=== PATIENT | female | born 1965 | race Caucasian/White ===

== ENCOUNTER → 2020-11-22 08:10 | Outpatient (BNVA) | payer OTHER, SELFPAY | PROVIDERS: PCP Family Medicine Adult Medicine; Visit Provider Family Medicine Adult Medicine | DX: E66.9 Obesity, unspecified (principal); R94.4 Abnormal results of kidney function studies; K21.9 Gastro-esophageal reflux disease without esophagitis; F42.9 Obsessive-compulsive disorder, unspecified; F41.8 Other specified anxiety disorders | CPT/HCPCS: 80053; 83036; 84443; 85025 ==

== ENCOUNTER 2024-08-26 13:27 | Observation (INO) | payer OTHER, SELFPAY ==
[2024-08-26] VITALS (7 sets, daily range): BP systolic 110–134; BP diastolic 76–83; PULSE 69–86; RESP 16–18; TEMP 36.6–37.2; O2SAT 97–100; BMI 31.7; BMI 32.5
--- NOTE | 2024-08-26 13:34 | CTR_ITS ---
PROCEDURE INFORMATION: Exam: CT Head Without Contrast Exam date and time: 08/26/2024 1:37 PM Age: 58 years old Clinical indication: Stroke-like symptoms; Left upper extremity and left lower extremity numbness/paresthesia; Additional info: Symptoms of acute stroke TECHNIQUE: Imaging protocol: Computed tomography of the head without contrast. Radiation optimization: All CT scans at this facility use at least one of these dose optimization techniques: automated exposure control; mA and/or kV adjustment per patient size (includes targeted exams where dose is matched to clinical indication); or iterative reconstruction. Other technique: STROKE PROTOCOL was implemented. COMPARISON: CT head wo con* [id number] 06/21/2018 6:28 PM RADIATION DOSE METRICS: Total DLP (mGy-cm): 1046.78 FINDINGS: Brain: No acute intracranial hemorrhage. No confluent lobar infarct. No mass effect. Cerebral ventricles: The ventricles and sulci are normal in size and shape for the patient's stated age. Paranasal sinuses: No fluid levels. Mastoid air cells: Visualized mastoid air cells are well aerated. Bones: No acute calvarial fracture. Soft tissues: Visualized soft tissues are unremarkable. CT/CT head thrombolytic [id number] IMPRESSION: No acute intracranial abnormality. If symptoms persist, consider further evaluation with MRI, if there are no contraindications to obtaining a MRI scan. ASSESSMENT: ASPECTS ([place] Stroke Program Early CT Score) is 10.
--- NOTE | 2024-08-26 13:34 | XRR_ITS ---
PROCEDURE INFORMATION: Exam: XR Chest Exam date and time: 08/26/2024 2:17 PM Age: 58 years old Clinical indication: Condition or disease; Other: CVA TECHNIQUE: Imaging protocol: Radiologic exam of the chest. Views: 1 view. COMPARISON: CR XR chest 1V [id number] 06/21/2018 6:22 PM FINDINGS: Lungs: No focal lung consolidation. Pleural spaces: No pleural effusion. No pneumothorax. Heart/Mediastinum: No cardiomegaly. Bones/joints: No acute bony abnormality. XR/XR chest 1V portable [id number] IMPRESSION: No focal lung consolidation.
--- NOTE | 2024-08-26 13:34 | ECG_ITS ---
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 Measurements Intervals [place] Rate: 70 P: 43 SD: 138 QRS: 38 QRSD: 92 T: 45 QT: 396 QTc: 428 Interpretive Statements SINUS RHYTHM LOW QRS VOLTAGE IN PRECORDIAL LEADS [QRS DEFLECTION < 1.0 mV IN CHEST LEADS] Compared to ECG 06/21/2018 17:40:46 No significant changes Electronically Signed On 08-28-2024 09:18:54 CDT by Venkata Childs M.D. [email or web address]
--- NOTE | 2024-08-26 13:38 | ED_ITS ---
HPI - Neuro Symptoms/Deficit 2 General: Chief Complaint: Neuro Symptoms/Deficit Stated Complaint: stroke like symptoms Time Seen by Provider: 08/26/24 13:31 Source: patient Mode of arrival: ambulatory Limitations: no limitations History of Present Illness: 58-year-old female states that at 1 PM s he bent over to pick something up and when she stood up she had felt lightheaded she states that since then she has had some left-sided weakness she is able ambulate but states she feels like her left arm and left leg are heavy she denies any vertigo states she still having some lightheadedness she denies headache denies chest pain. Associated symptoms: Reports vertigo; Deny chest pain, headache(s), nausea or vomiting Related Data Home Medications ?Medication ?Instructions ?Recorded ?Confirmed No Known Home Medications 08/26/2407/18 Allergies Allergy/AdvReac Type Severity Reaction Status Date / Time shellfish derived Allergy palpitation Verified 06/21/23 10:01 s Review of Systems 2 Const: Denies: fever(s), chills, body aches or change in appetite Eyes: Denies: blurry vision or eye discomfort ENMT: Denies: throat pain or dental pain Card: Denies: chest pain Resp: Denies: dyspnea GI: Denies: abdominal pain, nausea, vomiting or diarrhea Musc: Denies: neck pain or back pain Skin/Breast: Denies: rash Neuro: Reports: vertigo; Denies: headache(s) PFSH ED 2 PFSH: Medical History Unspecified psychosocial circumstance Abnormal weight gain Decreased GFR Obesity (BMI 30-39.9) Decreased calculated GFR Chronic GERD Anxiety associated with depression OCD (obsessive compulsive disorder) Surgical History H/O: hysterectomy History of Family History Mother Cancer breast Father Cancer lung Social History Smoking and tobacco/nicotine status: never used tobacco/nicotine Alcohol intake: current Alcohol intake frequency: other Substance/Drug Use: never Marital status: Single Current occupational status: employed NIH stroke score 2 NIHSS: Level Of Consciousness - 1a: 0 Level Of Consciousness Questions - 1b: Both Correct Level Of Consciousness Commands - 1c: Both Correct Best Gaze - 2: Normal Visual Munoz - 3: No Visual Loss Facial Palsy - 4: N ormal Motor Arm Right - 5: No Drift Motor Arm Left - 5: No Drift Motor Leg Right - 6: No Drift Motor Leg Left - 6: No Drift Limb Ataxia - 7: A bsent Sensory - 8: Normal Best Language - 9: No Aphasia Dysarthia - 10: Normal Extinction And Inattention - 11: 0 Score: Total Score: 0 Physical Exam 2 Const: COMMON NORMALS: no acute distress, patient oriented x3 and healthy appearing HENMT: COMMON NORMALS: normocephalic and atraumatic HEAD & SCALP: n ormocephalic and atraumatic Eye: COMMON NORMALS: Equal, round and reactive pupils present and EOMs intact bilaterally PUPIL: Yes Equal, round and reactive pupils present Neck/C-Spine: COMMON NORMALS: full ROM and supple Chest: COMMONS NORMALS: normal inspection of the chest and normal palpation of entire chest wall Resp: COMMON NORMALS: normal respiratory effort, No retractions, No use of accessory muscles and clear to auscultation bilaterally AUSCULTATION: clear to auscultation bilaterally Cardio: COMMON NORMALS: regular rate, regular rhythm and No murmurs present (Cardio) RATE: regular rate RHYTHM: regular rhythm Extremity: COMMON NORMALS: normal to inspection and full ROM Neuro: COMMON NORMALS: patient oriented x3, moves all extremities and no focal motor deficits Psych: COMMON NORMALS: mental status grossly normal, Normal thought process present and cooperative THOUGHT PROCESS: Normal thought process present Skin: COMMON NORMALS: no rashes or lesions noted and no wounds GENERAL SKIN EXAM: no rashes or lesions noted Course 2 Vital Signs: Vital signs: Vital Signs Temperature 98.9 F 08/26/24 13:29 Pulse Rate 85 08/26/24 13:29 Respiratory Rate 16 08/26/24 13:29 Blood Pressure 134/80 08/26/24 13:29 Pulse Oximetry 100 08/26/24 13:29 Oxygen Delivery Me thod Room Air 08/26/24 13:29 MDM - Neuro Symptoms/Deficit Medical Decision Making Patient presents here with a TIA head CT here is normal her symptoms here have resolved she no longer has weakness in the left side she was evaluated by neurologist from [facility] who recommended admission for TIA workup I spoke to hospitalist will admit at this time Medical Records I reviewed the patient's medical records. Lab Data I reviewed the patient's lab results. 08/26/24 13:45 08/26/24 13:[address] 08/26/24 13:34 IMPRESSION: No acute intracranial abnormality. If symptoms persist, consider further evaluation with MRI, if there are no contraindications to obtaining a MRI scan. ASSESSMENT: ASPECTS ([place] Stroke Program Early CT Score) is 10. ADDENDUM: 08/26/24 1353 ADDENDUM: THIS REPORT CONTAINS FINDINGS THAT MAY BE CRITICAL TO PATIENT CARE. The findings were verbally communicated via telephone conference with MYRIAM SPAULDING at 1:52 PM CDT on 08/26/2024. The findings were acknowledged and understood. Laboratory Results WBC 5.60 10^3/uL (3.29-11.43) 08/26/24 13:45 RBC 4.50 10^6/uL (3.85-5.65) 08/26/24 13:45 Hgb 13.80 g/dL (11.27-16.99) 08/26/24 13:45 Hct 41.6 % (36-47) 08/26/24 13:45 MCV 92.4 fl (85-98) 08/26/24 13:45 MCH 30.7 pg (27-33) 08/26/24 13:45 MCHC 33.2 g/dL (30-55) 08/26/24 13:45 RDW 12.2 % (12.1-15.1) 08/26/24 13:45 Plt Count 232 10^3/cmm (157-399) 08/26/24 13:45 MPV 8.7 fL (7.4-10.4) 08/26/24 13:45 Neut % (Auto) 46.5 % 08/26/24 13:45 Lymph % (Auto) 44.8 % 08/26/24 13:45 [place] % (Auto) 6.3 % 08/26/24 13:45 Eos % (Auto) 2.0 % 08/26/24 13:45 Baso % (Auto) 0.4 % 08/26/24 13:45 Neut # (Auto) 2.61 10^3/uL (1.8-7.7) 08/26/24 13:45 Lymph # (Auto) 2.5 10^3/uL (0.8-4.8) 08/26/24 13:45 [place] # (Auto) 0.4 10^3/uL (0.2-0.9) 08/26/24 13:45 Eos # (Auto) 0.1 10^3/uL (0.0-0.8) 08/26/24 13:45 Baso # (Auto) 0.0 10^3/uL (0.0-0.1) 08/26/24 13:45 Nucleated RBC % (auto) 0 % 08/26/24 13:45 Nucleated RBCs # 0.0 /100WBC 08/26/24 13:45 PT 13.40 SECONDS (12.1-14.9) 08/26/24 13:45 INR 0.96 (0.8-1.2) 08/26/24 13:45 APTT 27.3 SECONDS (23.9-36.7) 08/26/24 13:45 Sodium 139 mmol/L (136-145) 08/26/24 13:45 Potassium 4.3 mmol/L (3.5-5.1) 08/26/24 13:45 Chloride 103 mmol/L (98-107) 08/26/24 13:45 Carbon Dioxide 26 mmol/L (22-29) 08/26/24 13:45 Anion Gap 14.3 (5-19) 08/26/24 13:45 BUN 12 mg/dL (6-20) 08/26/24 13:45 Creatinine 0.8 mg/dL (0.5-0.9) 08/26/24 13:45 GFR Calculation 73.9 mL/min (90-130) L 08/26/24 13:45 Glucose 92 mg/dL (65-115) 08/26/24 13:45 POC Glucose 90 mg/dL (70-110) 08/26/24 13:50 Calculated Osmolality 287 mOsm/kg (285-295) 08/26/24 13:45 Calcium 9.5 mg/dL (8.5-10.5) 08/26/24 13:45 Total Bilirubin 0.4 mg/dL (0.15-1.2) 08/26/24 13:45 AST 25 U/L (0-32) 08/26/24 13:45 ALT 25 U/L (0-33) 08/26/24 13:45 Alkaline Phosphatase 130 U/L (35-105) H 08/26/24 13:45 Total Protein 7.1 g/dL (6.6-8.7) 08/26/24 13:45 Albumin 4.1 g/dL (3.5-5.2) 08/26/24 13:45 Globulin 3.0 g/dL (1.3-4.6) 08/26/24 13:45 All radiology interpretation(s) finalized by discharge Discharge Plan Discharge Patient Disposition: Admitted As Inpatient Clinical Impression: Transient cerebral ischemia Condition: Stable Coding Level of Care Code ED Slack Line Yarder for Philippe Ramos
[2024-08-26 13:51] LABS: Basophils % 0.4 %; Eosinophils # 0.1 10^3/uL (0.0-0.8); Hematocrit 41.6 % (36-47); Lymphocytes # 2.5 10^3/uL (0.8-4.8); Lymphocytes % 44.8 %; Mean Corpuscular HGB Conc 33.2 g/dL (30-55); Mean Corpuscular Hemoglobin 30.7 pg (27-33); Mean Corpuscular Volume 92.4 fl (85-98); Mean Platelet Volume 8.7 fL (7.4-10.4); Monocytes # 0.4 10^3/uL (0.2-0.9); Monocytes % 6.3 %; Neutrophils # 2.61 10^3/uL (1.8-7.7); Neutrophils % 46.5 %; Nucleated Red Blood Cells % 0 %; Platelet Count 232 10^3/cmm (157-399); Red Cell Distribution Width 12.2 % (12.1-15.1)
[2024-08-26 13:53] LABS: Glucose Point of Care 90 mg/dL (70-110)
[2024-08-26 14:07] LABS: INR 0.96 (0.8-1.2)
[2024-08-26 14:08] LABS: Partial Thromboplastin Time 27.3 SECONDS (23.9-36.7)
[2024-08-26 14:13] LABS: Alanine Aminotransferase 25 U/L (0-33); Albumin Level 4.1 g/dL (3.5-5.2); Alkaline Phosphatase 130 U/L (35-105); Aspartate Amino Transferase 25 U/L (0-32); Blood Urea Nitrogen 12 mg/dL (6-20); Calcium 9.5 mg/dL (8.5-10.5); Carbon Dioxide 26 mmol/L (22-29); Chloride 103 mmol/L (98-107); Creatinine Clr Calc Pharmacy 81.3113; Glomerular Filtration Rate 73.9 mL/min (90-130); Glucose 92 mg/dL (65-115); Osmolality Calculated 287 mOsm/kg (285-295); Sodium 139 mmol/L (136-145); Total Bilirubin 0.4 mg/dL (0.15-1.2); Total Protein 7.1 g/dL (6.6-8.7)
[2024-08-26 14:17] LABS: Anion Gap 14.3 (5-19); Potassium 4.3 mmol/L (3.5-5.1)
--- NOTE | 2024-08-26 15:24 | CTR_ITS ---
PROCEDURE INFORMATION: Exam: CTA Head With Contrast, Arteriography Exam date and time: 08/26/2024 3:49 PM Age: 58 years old Clinical indication: Paralysis, transient of limb and weakness; Additional info: TIA, CT angiogram cervical and intracranial vessels TECHNIQUE: Imaging protocol: Computed tomographic angiography of the head with contrast. Exam focused on the arteries. 3D rendering (Not supervised by radiologist): MIP and/or 3D reconstructed images were created by the technologist. Radiation optimization: All CT scans at this facility use at least one of these dose optimization techniques: automated exposure control; mA and/or kV adjustment per patient size (includes targeted exams where dose is matched to clinical indication); or iterative reconstruction. Contrast material: OMNIPAQUE 350; Contrast volume: 96 ml; Contrast route: INTRAVENOUS (IV); COMPARISON: CT head thrombolytic [id number] 08/26/2024 1:37 PM RADIATION DOSE METRICS: Total DLP (mGy-cm): 458.43 FINDINGS: ANTERIOR CIRCULATION: Right internal carotid artery: Mild calcified plaque No significant stenosis or aneurysm is seen involving the petrous, cavernous, or supraclinoid right internal caroid artery. Right middle cerebral artery: No occlusion or significant stenosis. No aneurysm. Right anterior cerebral artery: No occlusion or significant stenosis. No aneurysm. Left internal carotid artery: Mild calcified plaque. No significant stenosis or aneurysm is seen involving the petrous, cavernous, or supraclinoid left internal caroid artery. Left middle cerebral artery: No occlusion or significant stenosis. No aneurysm. Left anterior cerebral artery: No occlusion or significant stenosis. No aneurysm. POSTERIOR CIRCULATION: Right vertebral artery: Intradural right vertebral artery demonstrates no occlusion or significant stenosis. No aneurysm. Left vertebral artery: Intradural left vertebral artery demonstrates no occlusion or significant stenosis. No aneurysm. Basilar artery: No occlusion or significant stenosis. No aneurysm. Right posterior cerebral artery: No occlusion or significant stenosis. No aneurysm. Left posterior cerebral artery: No occlusion or significant stenosis. No aneurysm. PROCEDURE INFORMATION: Exam: CTA Neck With Contrast Exam date and time: 08/26/2024 3:49 PM Age: 58 years old Clinical indication: Paralysis, transient of limb and weakness; Additional info: TIA, CT angiogram cervical and intracranial vessels TECHNIQUE: Imaging protocol: Computed tomographic angiography of the neck with contrast. Exam focused on the cervical segments of the vasculature. 3D rendering (Not supervised by radiologist): MIP and/or 3D reconstructed images were created by the technologist. Radiation optimization: All CT scans at this facility use at least one of these dose optimization techniques: automated exposure control; mA and/or kV adjustment per patient size (includes targeted exams where dose is matched to clinical indication); or iterative reconstruction. Contrast material: OMNIPAQUE 350; Contrast volume: 96 ml; Contrast route: INTRAVENOUS (IV); COMPARISON: CT head thrombolytic [id number] 08/26/2024 1:37 PM RADIATION DOSE METRICS: Total DLP (mGy-cm): 458.43 FINDINGS: Right common carotid artery: No stenosis. No dissection or occlusion. Right internal carotid artery: No significant stenosis seen by NASCET criteria. No dissection or occlusion. Right external carotid artery: No occlusion or stenosis of the origin. Left common carotid artery: No stenosis. No dissection or occlusion. Left internal carotid artery: No significant stenosis seen by NASCET criteria. No dissection or occlusion. Left external carotid artery: No occlusion or stenosis of the origin. Right vertebral artery: No cervical vertebral artery stenosis. No dissection or occlusion. Left vertebral artery: No cervical vertebral artery stenosis. No dissection or occlusion. Soft tissues: Visualized soft tissues of the neck are unremarkable. Bones/joints: No acute bony abnormality. Moderate disc space narrowing at C4-C5, C5-C6 and C6-C7. CT/CT angio headneck* [id number] IMPRESSION: No intracranial large vessel arterial stenosis or occlusion. IMPRESSION: No significant cervical arterial stenosis or occlusion. REFERENCES: NASCET CRITERIA. The degree of stenosis in the cervical segment of the internal carotid artery is based on NASCET criteria. Normal is no stenosis. Mild is less than 50% stenosis. Moderate is 50-69% stenosis. Severe is 70% to 99% stenosis. Total occlusion is no detectable patent lumen.
--- NOTE | 2024-08-26 15:25 | P.HP_ITS ---
Providers/Chief Complaint 2 Chief Complaint: stroke like symptoms History of Present Illness Alejandra Merida is a 58 year old female with past medical history of TIA around 5 years ago, morbid obesity on weight loss shots presents to the ER with complaint of weakness in the left side of the body. As per the patient she was in her regular health till today afternoon. She bent down standing up she felt dizzy and heaviness and numbness on the left side of her body. Denies any nausea, vomiting, headache, chest pain. Had similar episode when she had cognitive problems and word salad almost 5 years ago and was admitted for a TIA workup. Currently the symptoms have resolved. Review of Systems 2 General: Reports: 10 or more systems reviewed and unremarkable except in HPI and below Const: Denies: fever(s), chills, body aches, change in appetite, change in weight, malaise, night sweats, diaphoresis, change in sleep pattern, daytime sleepiness or snoring Eyes: Denies: change in vision, blurry vision, photophobia, eye discomfort or eye discharge ENMT: Denies: throat pain, enlarged tonsils, hoarseness, mouth pain, oral sores, dry mouth, tinnitus, nasal congestion or post nasal drip Card: Denies: chest pain, palpitations, irregular heart rhythm, edema, swelling of feet/ankles, lightheadedness, syncope, pre-syncope, dyspnea on exertion, orthopnea, leg pain with exertion or acrocyanosis Resp: Denies: dyspnea, productive cough, non-productive cough, wheezing, stridor, pain on inspiration, change in phlegm color, hemoptysis or chest congestion GI: Denies: abdominal pain, nausea, vomiting, hematemesis, coffee ground emesis, dysphagia, heartburn, diarrhea, constipation, bloating, GI cramping, change in bowel habits, pain on defecation, hematochezia or melena : Denies: flank pain, dysuria, urinary frequency, urinary urgency, urinary hesitancy, nocturia or hematuria Musc: Denies: neck pain, back pain, extremity pain, joint pain, joint swelling, joint redness, joint stiffness or limited range of motion Neuro: Denies: headache(s), numbness in extremities, weakness in extremities, sensory changes, lack of coordination, difficulty walking, frequent falls, dizziness, vertigo, confusion, Slurred speech present, difficulty communicating thoughts or seizure-like activity Psych: Denies: anxiety, depression, mood swings, panic attacks, hopelessness or irritability Endo: Denies: polyuria, polydipsia, tired all the time, cold intolerance, excessive sweating, flushing or heat intolerance [place]angel/Lymph: Denies: easy bruising or easy bleeding All/Imm: Denies: tongue swelling, facial swelling or acute wheezing Medications/Allergies Home Medications ?Medication ?Instructions ?Recorded ?Confirmed ?Last Taken ?Type No Known Home Medications 08/26/24 0507/18 Unknown History Allergies Allergy/AdvReac Type Severity Reaction Status Date / Time shellfish derived Allergy palpitation Verified 06/21/23 10:01 s PFSH Acute 2 PFSH: Medical History Unspecified psychosocial circumstance Abnormal weight gain Decreased GFR Obesity (BMI 30-39.9) Decreased calculated GFR Chronic GERD Anxiety associated with depression OCD (obsessive compulsive disorder) Surgical History H/O: hysterectomy History of Family History Mother Cancer breast Father Cancer lung Social History Smoking and tobacco/nicotine status: never used tobacco/nicotine Alcohol intake: current Alcohol intake frequency: other Substance/Drug Use: never Marital status: Single Current occupational status: employed Vitals/I&O/Wt Last Vital Signs Temp 98.9 F 08/26/24 13:29 Pulse 85 08/26/24 13:29 Resp 16 08/26/24 13:29 BP 134/80 08/26/24 13:29 Pulse Ox 100 08/26/24 13:29 O2 Del Method Room Air 08/26/24 13:29 08/26/24 08/26/24 08/26/24 06:59 14:59 22:59 Intake Total 0 / 0 Balance 0 / 0 Weight last 48 hrs Weight 83.915 kg Physical Exam 2 Narrative: General: No acute distress, AO x3 HEENT: PERRLA, pupils bilaterally equal and reactive Chest: Normal vesicular breath sounds, no added sounds, equal good air entry bilaterally CVS: S1-S2 regular, no murmurs, no tachycardia, no gallops, no rubs Abdomen: Soft, nontender, no organomegaly, bowel sounds present Neuro: No focal deficits, no facial deformity, AO x3, power 5/5 in all limbs Data 08/26/24 13:45 08/26/24 13:45 A&P Assessment and plan (1) Transient cerebral ischemia: CT head within normal limits. Patient seen by neurologist at [facility] who recommended patient to be admitted for observation. Telemonitoring. Check A1c, lipid panel, TSH, vitamin B12. Check echocardiogram, CTA head and neck. Neurochecks every 4 hours. Aspirin 81 mg daily, atorvastatin 20 mg daily. PT/OT/speech evaluation. Check UA, urine drug screen. Goal blood pressure less than 140/90 mmHg. Plan Full code Heparin 5012 DVT prophylaxis Protonix OPD prophylaxis. PDMP PDMP Reviewed: Last Reviewed 08/26/24 15:52 by Tulio Alfredo MD Attestations 2 Medical Necessity Statement*: Admission under observation for further evaluation and management of TIA Diagnoses Transient cerebral ischemia G45.9
[2024-08-26] MEDS: aspirin 81 mg Chew Tablet 324 MG PO (15:35)
[2024-08-26] MEDS: iohexol 350 mg/mL 500 mL Btl (per mL) IV (15:51)
[2024-08-26 15:59] LABS: Procalcitonin 0.03 ng/mL (0-0.5)
[2024-08-26 16:37] LABS: Estmated Average Glucose 97; Iron 69 ug/dL (37-145); Percent Saturation 23.2 % (20-50); Total Iron Binding Capacity 297 mcg/dl; Unsaturated Iron Binding 228 ug/dL (112-347)
[2024-08-26 16:52] LABS: Vitamin B12 387 pg/mL (232-1245)
[2024-08-26 17:09] LABS: Thyroid Stimulating Hormone 3.66 uIU/mL (0.27-4.20)
[2024-08-26] MEDS: pantoprazole 40 mg SDV IVP (17:14)
[2024-08-26] MEDS: heparin 5,000 unit/mL INJ 1 mL 5000 UNIT SUBCUT (17:14)
[2024-08-26 18:09] LABS: Bacteria Urine None Seen /hpf; Hyaline Casts Urine 0-4 /lpf; RBC Urine 0-2 /hpf (0-2); Squamous Epithelial Cell Urine 0-5 /hpf (0-5); WBC Urine 0-5 /hpf (0-5)
[2024-08-26 18:11] LABS: Amphetamines Screen Urine Negative (Negative); Barbiturates Screen Urine Negative (Negative); Benzodiazepines Screen Urine Negative (Negative); Cocaine Screen Urine Negative (Negative); Opiate Screen Urine Negative (Negative); PCP Screen Urine Negative (Negative); THC Screen Urine Negative (Negative)
[2024-08-26 18:18] LABS: Add Urine Microscopic? YES; Bilirubin Urine Negative (Negative); Blood Urine Negative (Negative); Glucose Urine UA Negative (Normal); Ketones Urine 1+ (Negative); Leukocyte Esterase Urine Negative (Negative); Nitrate Urine Negative (Negative); Protein Urine Negative (Negative); Specific Gravity, Urine 1.066 (1.005-1.030); Urine Appearance Clear (CLEAR); Urine Color Yellow (Yellow); Urobilinogen Urine 0.2 mg/dL (Negative)
--- NOTE | 2024-08-26 18:39 | PC.NURSE ---
received from er via w/c at 1630 in to room 278-1.pt is alert and oriented x 4.denies pain at present.vss.moves all extremities well and equally.no s/o dizziness.oriented to room environment.instructed to notify staff for any dizziness,weakness or numbness in extremities..or for any concerns at all.pt verb understanding of instructions
[2024-08-26] MEDS: acetaminophen 325 mg Tablet 650 MG PO (20:03)
[2024-08-26] MEDS: atorvastatin 40 mg Tablet PO (20:03)
[2024-08-27 00:28] VITALS: BP 103/69; PULSE 70; RESP 16; TEMP 36.6; O2SAT 99
[2024-08-27 04:24] VITALS: PULSE 68
[2024-08-27] MEDS: heparin 5,000 unit/mL INJ 1 mL 5000 UNIT SUBCUT (04:30)
[2024-08-27 05:46] VITALS: BP 107/65; PULSE 70; RESP 18; TEMP 36.5; O2SAT 96
[2024-08-27 05:46] LABS: Basophils % 0.7 %; Eosinophils # 0.2 10^3/uL (0.0-0.8); Eosinophils % 4.6 %; Hematocrit 38.8 % (36-47); Lymphocytes % 44.2 %; Mean Corpuscular HGB Conc 32.7 g/dL (30-55); Mean Corpuscular Hemoglobin 30.2 pg (27-33); Mean Corpuscular Volume 92.4 fl (85-98); Mean Platelet Volume 8.9 fL (7.4-10.4); Monocytes # 0.3 10^3/uL (0.2-0.9); Monocytes % 6.6 %; Neutrophils # 1.99 10^3/uL (1.8-7.7); Neutrophils % 43.7 %; Nucleated Red Blood Cells % 0 %; Platelet Count 223 10^3/cmm (157-399); Red Cell Distribution Width 12.2 % (12.1-15.1); White Blood Count 4.55 10^3/uL (3.29-11.43)
[2024-08-27 06:06] LABS: Alanine Aminotransferase 23 U/L (0-33); Albumin Level 3.8 g/dL (3.5-5.2); Alkaline Phosphatase 120 U/L (35-105); Aspartate Amino Transferase 23 U/L (0-32); Blood Urea Nitrogen 11 mg/dL (6-20); Carbon Dioxide 25 mmol/L (22-29); Chloride 107 mmol/L (98-107); Creatinine Clr Calc Pharmacy 94.1971; Globulin 2.3 g/dL (1.3-4.6); Glomerular Filtration Rate 86.2 mL/min (90-130); Glucose 84 mg/dL (65-115); Magnesium 2.1 mg/dL (1.7-2.3); Osmolality Calculated 293 mOsm/kg (285-295); Phosphorus 4.3 mg/dL (2.5-4.5); Sodium 142 mmol/L (136-145); Total Bilirubin 0.3 mg/dL (0.15-1.2); Total Protein 6.1 g/dL (6.6-8.7)
[2024-08-27 06:07] LABS: Chol HDL Ratio 3.92 mg/dL (0.0-4.40); Cholesterol 196 mg/dL (0-200); HDL Cholesterol 50 mg/dL (60-100); LDL Cholesterol Calculated 119 mg/dL (50-129); LDL HDL Ratio 2.38 RATIO (0.00-3.22); Triglycerides 134 mg/dL (0-150)
[2024-08-27 06:13] LABS: Procalcitonin 0.04 ng/mL (0-0.5)
[2024-08-27 06:21] LABS: Folate Level 13.6 ng/mL (4.8-37.3)
[2024-08-27 07:33] VITALS: BP 107/68; PULSE 76; RESP 18; TEMP 36.6; O2SAT 99
[2024-08-27] MEDS: aspirin 81 mg EC Tablet PO (08:19)
[2024-08-27 11:29] VITALS: BP 118/81; PULSE 73; RESP 16; TEMP 36.5; O2SAT 99
--- NOTE | 2024-08-27 12:37 | P.DS_ITS ---
Discharge Providers Date of Admission: 08/26/24 16:18 Date of Discharge: August 27, 2024 Attending Provider at Admission: Tulio Alfredo MD Attending Provider at Discharge: Tulio Alfredo MD Diagnoses at Discharge Discharge Diagnosis (1) Transient cerebral ischemia: Status: Acute Reason for Visit Reason for Visit: stroke like symptoms Hospital Course Hospital Course Alejandra Merida is a 58 year old female with past medical history of TIA around 5 years ago, morbid obesity on weight loss shots presents to the ER with complaint of weakness in the left side of the body. As per the patient she was in her regular health till today afternoon. She bent down standing up she felt dizzy and heaviness and numbness on the left side of her body. Denies any nausea, vomiting, headache, chest pain. Had similar episode when she had cognitive problems and word salad almost 5 years ago and was admitted for a TIA workup. Currently the symptoms have resolved. Patient was improving on further evaluation and management. She did not have any further episodes of TIA or weakness in her arms or legs. She worked well with PT. CT was done which was negative for acute normality. Echocardiogram was done but was awaited. She did have mild dyslipidemia for which she will be on low-dose statin. She is to follow with a primary care provider over the next 1 week and with neurologist in 2 weeks. Physical Exam Narrative: General: No acute distress, AO x3 HEENT: PERRLA, pupils bilaterally equal and reactive Chest: Normal vesicular breath sounds, no added sounds, equal good air entry bilaterally CVS: S1-S2 regular, no murmurs, no tachycardia, no gallops, no rubs Abdomen: Soft, nontender, no organomegaly, bowel sounds present Neuro: No focal deficits, no facial deformity, AO x3, power 5/5 in all limbs Discharge Data Studies Completed and Pending Completed Studies During Hospitalization Category Date Time Status CT angio headneck* [id number] Stat Cat Scan 08/26/24 15:[address] head thrombolytic [id number] Stat Cat Scan 08/26/24 13:34 Completed XR chest 1V portable [id number] Stat Exams 08/26/24 13:34 Completed Pending at discharge Category Date Time Status Complete Blood Count w/Auto AM LABS Lab 08/28/24 04:00 Ordered Complete Blood Count w/Auto AM LABS Lab 08/29/24 04:00 Ordered Comprehensive Metabolic Panel AM LABS Lab 08/28/24 04:00 Ordered Comprehensive Metabolic Panel AM LABS Lab 08/29/24 04:00 Ordered Magnesium AM LABS Lab 08/28/24 04:00 Ordered Magnesium AM LABS Lab 08/29/24 04:00 Ordered Phosphorus AM LABS Lab 08/28/24 04:00 Ordered Phosphorus AM LABS Lab 08/29/24 04:00 Ordered CV. echo complete* [id number] Routine Ultrasound 08/27/24 16:08 Taken Radiology Impressions Chest X-Ray 08/26/24 13:34 IMPRESSION: No focal lung consolidation. Head CT 08/26/24 13:34 IMPRESSION: No acute intracranial abnormality. If symptoms persist, consider further evaluation with MRI, if there are no contraindications to obtaining a MRI scan. ASSESSMENT: ASPECTS ([place] Stroke Program Early CT Score) is 10. ADDENDUM: 08/26/24 4438 ADDENDUM: THIS REPORT CONTAINS FINDINGS THAT MAY BE CRITICAL TO PATIENT CARE. The findings were verbally communicated via telephone conference with MYRIAM SPAULDING at 1:52 PM CDT on 08/26/2024. The findings were acknowledged and understood. Head/Neck CTA 08/26/24 15:24 IMPRESSION: No intracranial large vessel arterial stenosis or occlusion. IMPRESSION: No significant cervical arterial stenosis or occlusion. REFERENCES: NASCET CRITERIA. The degree of stenosis in the cervical segment of the internal carotid artery is based on NASCET criteria. Normal is no stenosis. Mild is less than 50% stenosis. Moderate is 50-69% stenosis. Severe is 70% to 99% stenosis. Total occlusion is no detectable patent lumen. Laboratory Results WBC 4.55 10^3/uL (3.29-11.43) 08/27/24 05:18 RBC 4.20 10^6/uL (3.85-5.65) 08/27/24 05:18 Hgb 12.70 g/dL (11.27-16.99) 08/27/24 05:18 Hct 38.8 % (36-47) 08/27/24 05:18 MCV 92.4 fl (85-98) 08/27/24 05:18 MCH 30.2 pg (27-33) 08/27/24 05:18 MCHC 32.7 g/dL (30-55) 08/27/24 05:18 RDW 12.2 % (12.1-15.1) 08/27/24 05:18 Plt Count 223 10^3/cmm (157-399) 08/27/24 05:18 MPV 8.9 fL (7.4-10.4) 08/27/24 05:18 Neut % (Auto) 43.7 % 08/27/24 05:18 Lymph % (Auto) 44.2 % 08/27/24 05:18 [place] % (Auto) 6.6 % 08/27/24 05:18 Eos % (Auto) 4.6 % 08/27/24 05:18 Baso % (Auto) 0.7 % 08/27/24 05:18 Neut # (Auto) 1.99 10^3/uL (1.8-7.7) 08/27/24 05:18 Lymph # (Auto) 2.0 10^3/uL (0.8-4.8) 08/27/24 05:18 [place] # (Auto) 0.3 10^3/uL (0.2-0.9) 08/27/24 05:18 Eos # (Auto) 0.2 10^3/uL (0.0-0.8) 08/27/24 05:18 Baso # (Auto) 0.0 10^3/uL (0.0-0.1) 08/27/24 05:18 Nucleated RBC % (auto) 0 % 08/27/24 05:18 Nucleated RBCs # 0.0 /100WBC 08/27/24 05:18 PT 13.40 SECONDS (12.1-14.9) 08/26/24 13:45 INR 0.96 (0.8-1.2) 08/26/24 13:45 APTT 27.3 SECONDS (23.9-36.7) 08/26/24 13:45 Sodium 142 mmol/L (136-145) 08/27/24 05:18 Potassium 4.0 mmol/L (3.5-5.1) 08/27/24 05:18 Chloride 107 mmol/L (98-107) 08/27/24 05:18 Carbon Dioxide 25 mmol/L (22-29) 08/27/24 05:18 Anion Gap 14.0 (5-19) 08/27/24 05:18 BUN 11 mg/dL (6-20) 08/27/24 05:18 Creatinine 0.7 mg/dL (0.5-0.9) 08/27/24 05:18 GFR Calculation 86.2 mL/min (90-130) L 08/27/24 05:18 Glucose 84 mg/dL (65-115) 08/27/24 05:18 POC Glucose 90 mg/dL (70-110) 08/26/24 13:50 Estimat Average Glucose 97 08/26/24 13:45 Hemoglobin A1c 5.0 % (4.0-6.0) 08/26/24 13:45 Calculated Osmolality 293 mOsm/kg (285-295) 08/27/24 05:18 Calcium 9.0 mg/dL (8.5-10.5) 08/27/24 05:18 Phosphorus 4.3 mg/dL (2.5-4.5) 08/27/24 05:18 Magnesium 2.1 mg/dL (1.7-2.3) 08/27/24 05:18 Iron 69 ug/dL (37-145) 08/26/24 13:45 TIBC 297 mcg/dl 08/26/24 13:45 % Saturation 23.2 % (20-50) 08/26/24 13:45 Unsat Iron Binding 228 ug/dL (112-347) 08/26/24 13:45 Total Bilirubin 0.3 mg/dL (0.15-1.2) 08/27/24 05:18 AST 23 U/L (0-32) 08/27/24 05:18 ALT 23 U/L (0-33) 08/27/24 05:18 Alkaline Phosphatase 120 U/L (35-105) H 08/27/24 05:18 Total Protein 6.1 g/dL (6.6-8.7) L 08/27/24 05:18 Albumin 3.8 g/dL (3.5-5.2) 08/27/24 05:18 Globulin 2.3 g/dL (1.3-4.6) 08/27/24 05:18 Triglycerides 134 mg/dL (0-150) 08/27/24 05:18 Cholesterol 196 mg/dL (0-200) 08/27/24 05:18 LDL Cholesterol, Calc 119 mg/dL (50-129) 08/27/24 05:18 HDL Cholesterol 50 mg/dL (60-100) L 08/27/24 05:18 LDL/HDL Ratio 2.38 RATIO (0.00-3.22) 08/27/24 05:18 Cholesterol/HDL Ratio 3.92 mg/dL (0.0-4.40) 08/27/24 05:18 Vitamin B12 387 pg/mL (232-1245) 08/26/24 13:45 Folate 13.6 ng/mL (4.8-37.3) 08/27/24 05:18 Procalcitonin 0.04 ng/mL (0-0.5) 08/27/24 05:18 TSH 3.66 uIU/mL (0.27-4.20) 08/26/24 13:45 Urine Color Yellow (Yellow) 08/26/24 17:45 Urine Appearance Clear (CLEAR) 08/26/24 17:45 Urine pH 6.0 (5-7) 08/26/24 17:45 Ur Specific [place] 1.066 (1.005-1.030) H 08/26/24 17:45 Urine Protein Negative (Negative) 08/26/24 17:45 Urine Glucose (UA) Negative (Normal) 08/26/24 17:45 Urine Ketones 1+ (Negative) H 08/26/24 17:45 Urine Blood Negative (Negative) 08/26/24 17:45 Urine Nitrate Negative (Negative) 08/26/24 17:45 Urine Bilirubin Negative (Negative) 08/26/24 17:45 Urine Urobilinogen 0.2 mg/dL (Negative) 08/26/24 17:45 Ur Leukocyte Esterase Negative (Negative) 08/26/24 17:45 Urine RBC 0-2 /hpf (0-2) 08/26/24 17:45 Urine WBC 0-5 /hpf (0-5) 08/26/24 17:45 Ur Squamous Epith Cells 0-5 /hpf (0-5) 08/26/24 17:45 Amorphous Sediment Not Reportable 08/26/24 17:45 Urine Bacteria None seen /hpf (NONE) 08/26/24 17:45 Hyaline Casts 0-4 /lpf H 08/26/24 17:45 Urine Opiates Screen Negative ng/mL (Negative) 08/26/24 17:45 Ur Barbiturates Screen Negative ng/mL (Negative) 08/26/24 17:45 Ur Phencyclidine Scrn Negative ng/mL (Negative) 08/26/24 17:45 Ur Amphetamines Screen Negative ng/mL (Negative) 08/26/24 17:45 U Benzodiazepines Scrn Negative ng/mL (Negative) 08/26/24 17:45 Urine Cocaine Screen Negative ng/mL (Negative) 08/26/24 17:45 U Marijuana (THC) Screen Negative ng/mL (Negative) 08/26/24 17:45 Vitals Last Vital Signs Temp 97.7 F 08/27/24 11:29 Pulse 73 08/27/24 11:29 Resp 16 08/27/24 11:29 BP 118/81 08/27/24 11:29 Pulse Ox 99 08/27/24 11:29 O2 Del Method Room Air 08/27/24 11:29 Discharge Plan Discharge Patient Disposition: Home Condition: Stable Prescriptions: New aspirin 81 mg Tablet,Delayed Release (Dr/Ec) 81 mg PO DAILY Qty: 30 0RF atorvastatin [Lipitor] 10 mg tablet 10 mg PO DAILY Qty: 60 0RF No Action No Known Home Medications Discharge Orders: Discharge Order (Routine); Ordered 08/27/24 Ordered By: Tulio Alfredo Referrals: Mitch Arevalo MD [Physician, Neurology] - 7-10 days Discharge Diet: Cardiac Discharge Activity: Resume usual activity and Increase activity as tolerated Patient Instructions: Opioid Safety Discharge Attestations Time Spent in Discharge Care*: greater than 30 min Specific Discharge Activities: educating patient, educating and/or supporting family/caregiver, discussing with pcp/other providers, discussing with rifle case repairer/social workers/dc planners, documenting/other paperwork and evaluating patient/reviewing data Status at Discharge: Cognitive status at discharge: cognitively intact , Behavioral status at discharge: cooperative , Functional status at discharge: independent ambulation , Overall status at discharge: patient is back to baseline Quality Metrics Clinical Quality Measures [ No reported AMI, CVA or VTE this stay] Coding Level of Care Code 33341 Total time (in minutes) for Discharge: 60 Diagnoses Transient cerebral ischemia G45.9
--- NOTE | 2024-08-27 13:12 | PC.NURSE ---
Patient is in need of PCP and would suggestions for provider. This person will reach out to case mangement with request.
[2024-08-27 13:15] VITALS: BP 118/71; PULSE 72; O2SAT 92
--- NOTE | 2024-08-27 13:47 | PC.NURSE ---
Discharge Note Patient discharged to home via private vehicle accompanied by daughter. Discharge instructions reviewed with patient and/or sales representative aircraft. Mobile pharmacy medications and/or prescriptions provided. Belongings/home medications returned. IV catheter removed from AC. cath tip intact.
--- NOTE | 2024-08-27 16:08 | USCV_ITS ---
Alejandra Merida Age: 58 Gender: F : 1965 Exam Date: 08/27/2024 07:18 Ordering Phys: Tulio Alfredo MD Technologist: Emanuel Ward Exam Location: [facility] [place] Indication: acute stroke BP: 107 / 65 HR: 70 Rhythm: Sinus Technical Quality: Adequate MEASUREMENTS (Male / Female) Normal Values 2D ECHO LV Diastolic Diameter PLAX 4.1 cm 4.2 - 5.9 / 3.9 - 5.3 cm IVS Diastolic Thickness 1.1 cm 0.6 - 1.0 / 0.6 - 0.9 cm IVS Systolic Thickness 1.2 cm LVPW Diastolic Thickness 1.6 cm 0.6 - 1.0 / 0.6 - 0.9 cm LVPW Systolic Thickness 1.7 cm LVOT Diameter 2.1 cm LV Ejection Fraction 2D Teich 62.3 % LV Ejection Fraction MOD 4C 74.4 % LV Ejection Fraction MOD 2C 65.0 % LV Ejection Fraction 2C AL 65.4 % LA Diameter 3.0 cm RA Systolic Volume 4C AL 24.1 ml RA Systolic Volume 4C MOD 23.8 ml LA Sys Volume AL 28.5 cm cubed LA Sys Volume Index AL 14.2 cm cubed/m squared Aorta at Sinotubular Diameter 2.2 cm IVC Diameter 1.5 cm M-MODE LA Ao Ratio MM 1.3 AV Cusp Separation MM 1.8 cm DOPPLER AV Peak Velocity 157.0 cm/s LVOT Peak Velocity 99.0 cm/s AV Area Cont Eq vti 1.9 cm squared AV Area Cont Eq pk 2.1 cm squared MV Peak Velocity 96.0 cm/s MV Area PHT 4.4 cm squared Mitral E to A Ratio 0.9 TV Peak Velocity 233.5 cm/s TR Peak Velocity 235.0 cm/s TR Peak Gradient 22.1 mmHg TR Mean Velocity 190.0 cm/s TR Mean Gradient 15.1 mmHg TR Velocity Time Integral 64.1 cm PV Peak Velocity 99.0 cm/s RV Ejection Time 0.3 s FINDINGS Left Ventricle Left ventricle is normal in size. LV systolic function is normal with EF of 60-65%. No regional wall motion abnormalities. Right Ventricle Normal in size and function Right Atrium Normal in size Left Atrium Normal in size Mitral Valve Structurally normal mitral valve. Mild mitral regurgitation. Aortic Valve Structurally normal aortic valve. No significant stenosis or regurgitation. Tricuspid Valve Mild tricuspid regurgitation. Pulmonary artery systolic pressure is normal. Pulmonic Valve Not well visualized Pericardium Normal Aorta Normal in size IVC Appears to be normal CONCLUSIONS LV systolic function is normal with EF of 60-65% Mild mitral regurgitation Mild tricuspid regurgitation Venkata Childs MD (Electronically Signed) Final Date: 27 Aug 2024 21:58 S
== END 2024-08-27 13:46 | disposition home or self-care (01) ==
LOC: ER 15:14 → MEDSURG 08-27 06:26
PROVIDERS: Admitting Provider Student in an Organized Health Care Education/Training Program; Emergency Provider Emergency Medicine; Visit Provider Student in an Organized Health Care Education/Training Program
DX: G45.9 Transient cerebral ischemic attack, unspecified (principal); R29.700 NIHSS score 0; Z86.73 Personal history of transient ischemic attack (TIA), and cerebral infarction without residual deficits; E66.01 Morbid (severe) obesity due to excess calories; Z68.32 Body mass index [BMI] 32.0-32.9, adult; K21.9 Gastro-esophageal reflux disease without esophagitis; E78.5 Hyperlipidemia, unspecified
CPT/HCPCS: 36416; 70450; 70496; 70498; 71045; 80053; 80061; 80306; 81001; 82607; 82746; 82962; 83036; 83540; 83550; 83735; 84100; 84145; 84443; 85025; 85610; 85730; 93005; 93306; 94664; 96372; G0378; J1644; J2470; J9999